=== PATIENT | male | born 1965 | race American Indian/Alaskan Native ===

== ENCOUNTER 2021-02-23 03:32 | Emergency (ER) | payer SELFPAY ==
[2021-02-23 03:40] VITALS: BP 157/93
[2021-02-23] MEDS ORDERED: SODIUM CHLORIDE 0.9% 1000 ML 1,000 ML IV ONE (09:12)
[2021-02-23] MEDS ORDERED: HYDROcodone/ACETAMINOPHEN 10-325MG TAB PO ONE (09:13)
--- NOTE | 2021-02-23 09:15 | Emergency Department Report ---
ED Abdominal Pain HPI - General Chief Complaint: Abdominal Pain Stated Complaint: ABDOMINAL PAIN Time Seen by Provider: 02/23/21 08:45 Source: EMS Mode of arrival: Stretcher Limitations: No Limitations - History of Present Illness Initial Comments: 55-year-old male presents to the ER today with complaints of epigastric pain. Patient states that has been having this intermittent pain for the past 3 days. He also reports mild lower abdominal pain intermittently. He states that the pain radiates into his lower back. He denies any associated nausea, vomiting, constipation or diarrhea. He reports subjective fever at home. He denies any UTI symptoms. He denies similar symptoms in the past. He denies any history of abdominal surgeries. He denies any alcohol or drug use. He denies any chest pain or shortness of breath or any additional symptoms at this time. MD Complaint: abdominal pain -: days(s) (3) - Related Data Previous Rx's Medication Instructions Recorded Last Taken Type Acetaminophen/Codeine [Tylenol 1 tab PO Q6H PRN #12 tab 02/23/21 Unknown Rx /Codeine # 3 tab] Famotidine [Pepcid] 20 mg PO BID #30 tablet 02/23/21 Unknown Rx Allergies Allergy/AdvReac Type Severity Reaction Status Date / Time No Known Allergies Allergy Verified 02/23/21 03:40 ED Review of Systems ROS: Stated complaint: ABDOMINAL PAIN Other details as noted in HPI Comment: All other systems reviewed and negative Constitutional: denies: chills, fever ENT: denies: ear pain, throat pain Respiratory: denies: cough, shortness of breath, SOB with exertion, SOB at rest, wheezing Cardiovascular: denies: chest pain, palpitations Gastrointestinal: abdominal pain. denies: nausea, vomiting, diarrhea, constipation, hematemesis, melena, hematochezia Genitourinary: denies: urgency, dysuria, frequency, hematuria, discharge, testicular pain, testicular mass Musculoskeletal: denies: back pain, joint swelling, arthralgia, myalgia Skin: denies: rash, lesions, change in color, change in hair/nails, pruritus Neurological: denies: headache, weakness, paresthesias Psychiatric: denies: anxiety, depression, auditory hallucinations, visual hallucinations, homicidal thoughts, suicidal thoughts Hematological/Lymphatic: denies: easy bleeding, easy bruising, swollen glands ED Past Medical Hx - Past Medical History Previous Medical History?: No - Surgical History Past Surgical History?: Yes Additional Surgical History: NECK - Social History Smoking Status: Unknown if ever smoked Substance Use Type: None - Medications Home Medications: Home Medications Medication Instructions Recorded Confirmed Last Taken Type Acetaminophen/Codeine [Tylenol 1 tab PO Q6H PRN #12 tab 02/23/21 Unknown Rx /Codeine # 3 tab] Famotidine [Pepcid] 20 mg PO BID #30 tablet 02/23/21 Unknown Rx ED Physical Exam - General Limitations: No Limitations General appearance: alert, in no apparent distress - Head Head exam: Present: atraumatic, normocephalic, normal inspection - Eye Eye exam: Present: normal appearance, PERRL, EOMI Pupils: Present: normal accommodation - ENT ENT exam: Present: normal exam, mucous membranes moist, TM's normal bilaterally - Neck Neck exam: Present: normal inspection, full ROM - Respiratory Respiratory exam: Present: normal lung sounds bilaterally. Absent: respiratory distress, wheezes, rales, rhonchi - Cardiovascular Cardiovascular Exam: Present: regular rate, normal rhythm - GI/Abdominal GI/Abdominal exam: Present: soft, tenderness (epigastric ). Absent: distended, rebound, rigid - Neurological Exam Neurological exam: Present: alert, oriented X3, CN II-XII intact, normal gait - Psychiatric Psychiatric exam: Present: normal affect, normal mood - Skin Skin exam: Present: intact ED Course Vital Signs 02/23/21 02/23/21 03:36 12:51 Temperature 98.2 F Pulse Rate 68 63 Respiratory 18 Rate Blood Pressure 157/93 O2 Sat by Pulse 99 100 Oximetry ED Medical Decision Making - Lab Data Result diagrams: 02/23/21 09:30 02/23/21 09:30 - Radiology Data Radiology results: report reviewed Patient: JUD REYES MR#: [id number] : 1965 Acct:[id number] Age/Sex: 55 / M ADM Date: 02/23/21 Loc: ED Attending Dr: Ordering Physician: YAEL HERNANDEZ Date of Service: 02/23/21 Procedure(s): CT abdomen pelvis w con Accession Number(s): [id number] cc: YAEL HERNANDEZ CT abdomen pelvis w con INDICATION: Epigastric/lower abd pain. TECHNIQUE: All CT scans at this location are performed using CT dose reduction for ALARA by means of automated exposure control. COMPARISON: None available. FINDINGS: The included lung bases are clear. The heart is normal in size. The liver, gallbladder, kidneys, adrenal glands, pancreas, and spleen all appear normal. There are no acute bowel abnormalities. There is no free air or free fluid. Abdominal aorta is nonaneurysmal. There is no abdominal or pelvic adenopathy. The visualized bones demonstrate no acute findings. IMPRESSION: 1. No acute findings or findings to explain the patient's symptoms. Signer Name: Louie Hoffman MD Signed: 02/23/2021 11:57 AM Workstation Name: [id number] Transcribed By: NICOLA Dictated By: Louie Hoffman MD Electronically Authenticated By: Louie Hoffman MD Signed Date/Time: 02/23/21 1151 DD/ 1155 TD/TT: - Medical Decision Making labs reviewed and unremarkable. CT abd and pelvis shows nothing acute. Patient observed currently resting comfortably. He Is not in any acute distress. His symptoms have improved after meds and IV fluids. Discussed all lab results including imaging results with patient. Exact cause of his symptoms unclear, but at this time there is nothing to indicate that he needs any additional testing, specialist consult or admission. He will be discharged home with referral information to PCP and GI as well as medications to help with symptoms. He understands to return to the ER if any point his symptoms worsens. Patient expressed understanding for instructions and agree with plan. Patient stable at time of discharge. Critical care attestation.: If time is entered above; I have spent that time in minutes in the direct care of this critically ill patient, excluding procedure time. ED Disposition Clinical Impression: Epigastric pain, Gastritis Disposition: HOME / SELF CARE / HOMELESS Is pt being admited?: No Does the pt Need Aspirin: No Condition: Stable Instructions: Gastritis, Adult, [id number], Abdominal Pain, Adult, [id number] Additional Instructions: Recommend taking the Pepcid and the Tylenol threes as prescribed to help. I do recommend follow-up with your PCP and or GI specialist as additional instructions if your symptoms persist. Return to the ER if your symptoms changes or worsens in any way. Prescriptions: Famotidine [Pepcid] 20 mg PO BID #30 tablet Acetaminophen/Codeine [Tylenol /Codeine # 3 tab] 1 tab PO Q6H PRN #12 tab PRN Reason: Pain , Severe (7-10) Referrals: LAMONT LEMOS MD [Staff Physician] - 3-5 Days [facility] [Provider Group] - 3-5 Days Time of Disposition: 12:38
[2021-02-23 10:00] LABS: Basophils % (Auto) 0.1 % (0.0-1.8); Eosinophils % (Auto) 0.4 % (0.0-4.3); Hematocrit 42.7 % (35.5-45.6); Hemoglobin 13.9 gm/dl (11.8-15.2); Lymphocytes # (Auto) 2.4 K/mm3 (1.2-5.4); Lymphocytes % (Auto) 42.1 % (13.4-35.0); Mean Corpuscular HGB Conc 32 % (32-34); Mean Corpuscular Volume 93 fl (84-94); Monocytes # (Auto) 0.5 K/mm3 (0.0-0.8); Monocytes % (Auto) 9.3 % (0.0-7.3); Platelet Count 253 K/mm3 (140-440); Red Blood Count 4.59 M/mm3 (3.65-5.03); Red Cell Distribution Width 13.5 % (13.2-15.2)
[2021-02-23 10:14] LABS: Alanine Aminotransferase 14 units/L (7-56); Albumin 4.3 g/dL (3.9-5); BUN/Creatinine Ratio 11; Blood Urea Nitrogen 9 mg/dL (9-20); Calcium 9.3 mg/dL (8.4-10.2); Hemolysis Index 5
[2021-02-23] MEDS: FAMOTIDINE 20 MG TAB PO ONE ×2 (10:17→10:18)
[2021-02-23 10:25] LABS: Bilirubin,Direct < 0.2 mg/dL (0-0.2)
--- NOTE | 2021-02-23 12:02 | Cat Scan Report ---
CT abdomen pelvis w con INDICATION: Epigastric/lower abd pain. TECHNIQUE: All CT scans at this location are performed using CT dose reduction for ALARA by means of automated e xposure control. COMPARISON: None available. FINDINGS: The included lung bases are clear. The heart is normal in size. The liver, gallbladder, kidneys, adrenal glands, pancreas, and spleen all appear normal. There are no acute bowel abnormalities. There is no free air or free fluid. Abdominal aorta is nonaneurysmal. There is no abdominal or pelvic adenopathy. The visualized bones de monstrate no acute findings. IMPRESSION: 1. No acute findings or findings to explain the patient's symptoms. Signer Name: Louie Hoffman MD Signed: 02/23/2021 11:57 AM Workstation Name: [id number]
[2021-02-23 12:26] LABS: Color,Urine Yellow (Yellow)
[2021-02-23 12:27] LABS: Bilirubin,Urine Negative (Negative); Blood,Urine Negative (Negative); Protein,Urine <15 mg/dL mg/dL (Negative)
[2021-02-23 13:18] LABS: RBC,Urine < 1.0 /HPF (0.0-6.0); WBC,Urine < 1.0 /HPF (0.0-6.0)
== END 2021-02-23 12:52 | disposition home or self-care (01) ==
LOC: ED 03:32
DX: K29.70 Gastritis, unspecified, without bleeding (principal); R10.13 Epigastric pain
CPT/HCPCS: 36415; 74177; 80048; 80076; 81001; 83690; 85025; 96360; 96361; 99285; J7030; Q9967; Q0162